=== PATIENT | male | born 1960 | race Caucasian/White ===

== ENCOUNTER 2016-05-22 10:15 | Day surgery (SDC) | payer BC ==
[2016-05-18 17:30] VITALS: BMI 30.5
[2016-05-22] MEDS ORDERED: PROPOFOL 20 ML ONE ×2 (10:50)
[2016-05-22 11:55] VITALS: TEMP 98.4
[2016-05-22 12:15] VITALS: BP 116/66; PULSE 74
--- NOTE | 2016-05-24 15:12 | PATH ---
Surgical Pathology Report Patient Name: MARIA DOLORES ANN [facility]. Rec. #: [id number] /Age/Gender: 1960 (Age: 55) / M Account: [id number] Location: [facility]-ENDOSCOPY Taken: 05/22/2016 Received: 05/22/2016 Reported: 05/24/2016 Physicians: Raza Trotter M.D. Specimen(s) Received LEFT COLON Clinical History Rule out colon cancer, history of polyps Polyp Final Diagnosis LEFT COLON, BIOPSY: TUBULAR ADENOMA. Electronically Signed Milena Santacruz M.D. Gross Description Received in formalin, labeled "left colon" is a mendoza, irregular portion of soft tissue measuring 0.2 cm. in greatest dimension. The specimen is submitted in toto in one cassette. 05/22/201605/22/2016
== END 2016-05-22 12:19 | disposition home or self-care (01) ==
LOC: FASU-ENDO 10:15
PROVIDERS: ATTEND Internal Medicine Gastroenterology
PROC: 0DBM8ZX Excision of Descending Colon, Via Natural or Artificial Opening Endoscopic, Diagnostic (ICD-10-PCS; principal; 2016-05-22 11:19)
DX: Z86.010 Personal history of colon polyps (principal); D12.4 Benign neoplasm of descending colon; Z83.71 Family history of colonic polyps; K57.30 Diverticulosis of large intestine without perforation or abscess without bleeding
CPT/HCPCS: 88305-TC

== ENCOUNTER 2017-03-10 09:45 | Emergency (ER) | payer BC ==
--- NOTE | 2017-03-10 09:58 | PDOC ---
History of Present Illness - General Chief Complaint: Respiratory Stated Complaint: COUGH & EAR CONGESTION Time Seen by Provider: 03/10/17 09:50 History Source: Patient Exam Limitations: No Limitations - History of Present Illness Initial Comments: 56 yo M with history of asthma presents with cough, congestion, fever, body aches for past 3 days. He returned from a trip to [place] yesterday. is at home with similar symptoms. He notes that the cough is productive in AM. He also notes that he has difficulty taking a deep breath as it causes a fit of coughing. Cough is worse at nighttime. Also associated with R ear pain and fullness. No discharge from ear. Past History - Past Medical History Allergies/Adverse Reactions: Allergies Allergy/AdvReac Type Severity Reaction Status Date / Time Penicillins Allergy Unknown Verified 03/10/17 09:54 Home Medications: Ambulatory Orders Cholecalciferol (Vitamin D3) [Vitamin D3] 2,000 unit PO DAILY 05/18/16 Fluticasone/Salmeterol [Advair 250-50 Diskus] 1 each IH DAILY 05/18/16 Alprazolam 1 mg PO ASDIR PRN #15 tablet 09/28/16 Aspirin [Aspirin Ec] 81 mg PO DAILY 09/28/16 Sertraline HCl [Zoloft] 50 mg PO DAILY #0 tablet 09/28/16 Acetaminophen [Pain Relief] 1,000 mg PO ONCE 03/10/17 Albuterol Sulfate Inhaler - [Ventolin HFA Inhaler -] 1 - 2 inh PO QID PRN #1 inhaler 03/10/17 Albuterol Sulfate Inhaler - [Ventolin Hfa Inhaler -] 1 - 2 inh PO QID PRN Guaifenesin AC [Robitussin AC -] 5 ml PO QID PRN #60 ml MDD 20 mL 03/10/17 Anemia: No Asthma: Yes Cancer: No Cardiac Disorders: No CVA: No COPD: No CHF: No Dementia: No Diabetes: No GI Disorders: No Disorders: No HTN: No Hypercholesterolemia: No (MILDLY ELEVATED-NO MEDS) Liver Disease: No Seizures: No Thyroid Disease: No - Surgical History Abdominal Surgery: No Appendectomy: No Cardiac Surgery: No Cholecystectomy: No Lung Surgery: No Neurologic Surgery: No Orthopedic Surgery: No - Suicide/Smoking/Psychosocial Hx Smoking Status: No Smoking History: Never smoked Number of Cigarettes Smoked Daily: 0 Hx Alcohol Use: Yes (THREE TIMES PER WEEK) Drug/Substance Use Hx: No Substance Use Type: Alcohol Hx Substance Use Treatment: No Review of Systems - Review of Systems Able to Perform ROS?: Yes Comments:: GENERAL/CONSTITUTIONAL: +Fever/chills. No weakness. HEAD, EYES, EARS, NOSE AND THROAT: No change in vision. +L ear pain, no discharge. +Sore throat. CARDIOVASCULAR: No shortness of breath. +Pain with cough. RESPIRATORY: +Cough. No wheezing or hemoptysis. GASTROINTESTINAL: No nausea, vomiting, diarrhea or constipation. GENITOURINARY: No dysuria, frequency, or change in urination. MUSCULOSKELETAL: No joint or muscle swelling or pain. No neck or back pain. SKIN: No rash NEUROLOGIC: No headache, vertigo, loss of consciousness, or change in strength/ sensation. ENDOCRINE: No increased thirst. No abnormal weight change. HEMATOLOGIC/LYMPHATIC: No anemia, easy bleeding, or history of blood clots. ALLERGIC/IMMUNOLOGIC: No hives or skin allergy. *Physical Exam - Physical Exam Comments: GENERAL: Awake, alert, and fully oriented, in no acute distress HEAD: No signs of trauma EYES: PERRLA, EOMI, sclera anicteric, conjunctiva clear. +TM effusions B/L. ENT: Auricles normal inspection, hearing grossly normal, nares patent, oropharynx clear without exudates. Moist mucosa. +Tonsillar hypertrophy B/L. NECK: Normal ROM. No JVD or masses. +Anterior cervical lymphadenopathy B/L. LUNGS: Breath sounds equal, clear to auscultation bilaterally. No wheezes, and no crackles. Intermittent dry cough. HEART: Tachycardic with regular rhythm, normal S1 and S2, no murmurs, rubs or gallops ABDOMEN: Soft, nontender, normoactive bowel sounds. No guarding, no rebound. No masses EXTREMITIES: Normal range of motion, no edema. No clubbing or cyanosis. No cords, erythema, or tenderness NEUROLOGICAL: Cranial nerves II through XII grossly intact. Normal speech, normal gait SKIN: Warm, Dry, normal turgor, no rashes or lesions noted. Medical Decision Making - Medical Decision Making 03/10/17 11:08 Pt likely with viral URI- flu vs other viral etiology. Will obtain CXR to r/o consolidation, flu swab. Will give ibuprofen for fever, duoneb for the bronchospasm. DC home when improved. 03/10/17 11:19 XR no acute findings. Flu swab negative. Symptoms have been for more than 48 hrs at this point, so even if it is a false negative, tamiflu will not help. Symptomatic treatment, outpatient f/u with PMD. *DC/Admit/Observation/Transfer Diagnosis at time of Disposition: Viral upper respiratory illness - Discharge Dispostion Disposition: HOME Condition at time of disposition: Improved Admit: No - Prescriptions Prescriptions: Albuterol Sulfate Inhaler - [Ventolin HFA Inhaler -] 1 - 2 inh PO QID PRN #1 inhaler PRN Reason: Short Of Breath/Wheezing Guaifenesin AC [Robitussin AC -] 5 ml PO QID PRN #60 ml MDD 20 mL PRN Reason: Cough - Referrals Referrals: Mando Bullock MD [Primary Care Provider] - - Patient Instructions Printed Discharge Instructions: DI for Viral Upper Respiratory Infection -- Adult - Post Discharge Activity
[2017-03-10 10:01] VITALS: BP 130/80; BMI 31.6
[2017-03-10] MEDS ORDERED: IBUPROFEN 600 MG TABLET (FP) PO ONE ×2 (10:02→10:04)
[2017-03-10] MEDS ORDERED: ALBUTEROL SO4 2.5/IPRATROPIUM 0.5 INH SOL 3 ML VIAL.NEB. NEB ONE ×2 (10:09→10:12)
[2017-03-10 10:57] VITALS: PULSE 104; TEMP 100.8
== END 2017-03-10 11:29 | disposition home or self-care (01) ==
LOC: FER 09:45
PROC: 3E0F7GC Introduction of Other Therapeutic Substance into Respiratory Tract, Via Natural or Artificial Opening (ICD-10-PCS; principal; 2017-03-10)
DX: J06.9 Acute upper respiratory infection, unspecified (principal); B97.89 Other viral agents as the cause of diseases classified elsewhere
CPT/HCPCS: 71010-TC; 87804; 99282-25

== ENCOUNTER 2019-03-08 10:01 | Emergency (ER) | payer BC ==
--- NOTE | 2019-03-08 10:15 | PDOC ---
History of Present Illness - General Chief Complaint: Injury Stated Complaint: RT SIDE RIB PAIN Time Seen by Provider: 03/08/19 10:03 - History of Present Illness Initial Comments: 03/08/19 10:23 58yo male presents ambulatory to the ER c/o R lateral rib pain s/p a fall yesterday. States he was walking the dog when he tripped over a curb and landed with his elbow going into his R ribs. States he was able to get up from the fall and walk home. States R rib pain since the fall and has taken oxycodone, advil, tylenol for the pain without relief. Pt states hx of asthma and he did feel sob last night and had pain all night. Pt with pinpoint ttp over the 8th R lateral rib. Pt denies abd pain. No blood in urine or stool. No cva ttp. Pt denies hitting his head or loc. Denies neck or back pain. Pt denies n/v/d. Pt denies all other complaints. No hip pain. States last tylenol dose was 4am today. Pmhx: asthma, HLD Pshx: R knee sx, pyloric stenosis sx as All: PCN Past History - Past Medical History Allergies/Adverse Reactions: Allergies Allergy/AdvReac Type Severity Reaction Status Date / Time Penicillins Allergy Unknown Verified 03/08/19 10:02 Home Medications: Ambulatory Orders Cholecalciferol (Vitamin D3) [Vitamin D3] 2,000 unit PO DAILY 05/18/16 Fluticasone/Salmeterol [Advair 250-50 Diskus] 1 each IH DAILY 05/18/16 Alprazolam 1 mg PO ASDIR PRN #15 tablet 09/28/16 Aspirin [Aspirin Ec] 81 mg PO DAILY 09/28/16 Sertraline HCl [Zoloft] 50 mg PO DAILY #0 tablet 09/28/16 Acetaminophen [Pain Relief] 1,000 mg PO ONCE 03/10/17 Albuterol Sulfate Inhaler - [Ventolin HFA Inhaler -] 1 - 2 inh PO QID PRN #1 inhaler 03/10/17 Acetaminophen W/ Codeine #3 [Tylenol # 3 -] 1 tab PO Q6H PRN #12 tablet MDD 4 tabs daily 03/08/19 Anemia: No Asthma: Yes Cancer: No Cardiac Disorders: No CVA: No COPD: No CHF: No Dementia: No Diabetes: No GI Disorders: No Disorders: No HTN: No Hypercholesterolemia: No (MILDLY ELEVATED-NO MEDS) Liver Disease: No Seizures: No Thyroid Disease: No - Surgical History Abdominal Surgery: No Appendectomy: No Cardiac Surgery: No Cholecystectomy: No Lung Surgery: No Neurologic Surgery: No Orthopedic Surgery: No - Psycho Social/Smoking Cessation Hx Smoking Status: No Smoking History: Never smoked Number of Cigarettes Smoked Daily: 0 Hx Alcohol Use: Yes (THREE TIMES PER WEEK) Drug/Substance Use Hx: No Substance Use Type: Alcohol Hx Substance Use Treatment: No Review of Systems - Review of Systems Able to Perform ROS?: Yes Is the patient limited Japanese proficient: No Constitutional: No: Chills, Fever HEENTM: No: Nose Congestion, Throat Swelling Respiratory: Yes: Shortness of Breath. No: Cough Cardiac (ROS): Yes: Chest Pain, Other (R rib pain) ABD/GI: No: Blood Streaked Bowels, Diarrhea, Nausea, Vomiting, Abdominal cramping : No: Burning, Dysuria, Hematuria Musculoskeletal: No: Back Pain, Neck Pain Integumentary: No: Bruising, Rash Neurological: No: Headache, Numbness, Paresthesia, Tingling, Tremors, Weakness, Ataxia, Dizziness All Other Systems: Reviewed and Negative *Physical Exam - Vital Signs 03/08/19 10:27 Selected Entries 03/08/19 10:02 Temperature 98.2 F Pulse Rate 76 Respiratory 20 Rate Blood Pressure 127/86 O2 Sat by Pulse 99 Oximetry (%) Weight 95.254 kg - Physical Exam General Appearance: Yes: Nourished, Appropriately Dressed. No: Apparent Distress HEENT: positive: EOMI, Pharynx Normal Neck: positive: Supple, Other (no stepoffs or deformities). negative: Tender lateral, Tender midline Respiratory/Chest: positive: Chest Tender (R lateral 8th rib ttp anterior axillary line and midaxillary line, no deformities, no ecchymosis, no hematoma) , Lungs Clear, Normal Breath Sounds. negative: Respiratory Distress Cardiovascular: positive: Regular Rhythm, Regular Rate, S1, S2. negative: Edema Gastrointestinal/Abdominal: positive: Normal Bowel Sounds, Soft. negative: Guarding, Rebound, Tenderness Musculoskeletal: positive: Normal Inspection, Other (no midline ttp, no stepoffs or deformities). negative: CVA Tenderness, Decreased Range of Motion, Vertebral Tenderness Extremity: positive: Normal Capillary Refill, Normal Inspection, Normal Range of Motion, Other (FROM of elbows b/l without ttp, FROM of knees, pelvis stable, ambulates with a steady gait) Integumentary: positive: Normal Color, Dry, Warm Neurologic: positive: book editor II-XII NML intact, Fully Oriented, Alert, Normal Mood/ Affect, Normal Response, Motor Strength 07/14 Medical Decision Making - Medical Decision Making 03/08/19 10:29 a/p: 58yo male with hx of hld/asthma s/p mechanical trip and fall yesterday while walking the dog with R lateral rib pain -concern for fracture rib vs bruised rib -lidoderm, pt declines oral meds -will send for rib xray series -will monitor and reassess -low suspicion for ptx, lungs cta b/l 03/08/19 11:11 cxr without rib fx wll give incentive spirometry no pna stable for dc to home 03/08/19 11:21 discussed pain control at home discussed follow up with PMD will give tylenol #3 for comfort at night, but discussed all side effects incentive spirometer to go home with Discharge - Discharge Information Problems reviewed: Yes Clinical Impression/Diagnosis: Rib contusion Condition: Stable Disposition: HOME - Admission No - Additional Discharge Information Prescriptions: Acetaminophen W/ Codeine #3 [Tylenol # 3 -] 1 tab PO Q6H PRN #12 tablet MDD 4 tabs daily PRN Reason: Pain - Follow up/Referral Referrals: Juan Carlos Dominguez MD [Staff Physician] - - Patient Discharge Instructions Patient Printed Discharge Instructions: How to Prevent Falls, DI for Prescription Opioid Use, DI for Rib Contusion, How to Use an Incentive Spirometer Additional Instructions: Please take all medications as prescribed. Please understand that tylenol with codeine has tylenol in it and please avoid more than 4000mg of tylenol daily. Please do not drive or operate heavy machinery while taking the tylenol #3. Please make an appointment to see your PMD on sunday. Please use the incentive spirometer as discussed - 10x every hour you are awake. Please avoid further falls. Please return to the ED with any further concerns or complaints. - Post Discharge Activity
[2019-03-08 10:17] VITALS: BP 127/86; PULSE 76; TEMP 98.2; BMI 32.3
[2019-03-08] MEDS ORDERED: LIDOCAINE 5% TOPICAL PATCH TP ONE (10:22)
[2019-03-08] MEDS ORDERED: LIDOCAINE 5% TOPICAL PATCH ONE (11:03)
[2019-03-08] MEDS ORDERED: LIDOCAINE PATCH REMOVAL MC SCH (22:00)
== END 2019-03-08 11:42 | disposition home or self-care (01) ==
LOC: FER 10:01
DX: S20.219A Contusion of unspecified front wall of thorax, initial encounter (principal); W18.39XA Other fall on same level, initial encounter; Z91.81 History of falling; Y93.89 Activity, other specified; Y92.89 Other specified places as the place of occurrence of the external cause; E78.00 Pure hypercholesterolemia, unspecified; J45.909 Unspecified asthma, uncomplicated
CPT/HCPCS: 71101-TC-RT-FY; 99282-25

== ENCOUNTER 2022-01-09 08:27 | Day surgery (SDC) | payer BC ==
[2022-01-05 15:53] VITALS: BMI 31.6
[2022-01-09 08:43] VITALS: TEMP 97.7
[2022-01-09 10:03] VITALS: RESP 18
[2022-01-09 10:05] VITALS: BP 110/66; PULSE 89
== END 2022-01-09 10:10 | disposition home or self-care (01) ==
LOC: FASU-ENDO 08:27
PROVIDERS: ATTEND Internal Medicine Gastroenterology
PROC: 0DJD8ZZ Inspection of Lower Intestinal Tract, Via Natural or Artificial Opening Endoscopic (ICD-10-PCS; principal; 2022-01-09 09:22)
DX: Z12.11 Encounter for screening for malignant neoplasm of colon (principal); Z86.010 Personal history of colon polyps; Z83.71 Family history of colonic polyps; K57.30 Diverticulosis of large intestine without perforation or abscess without bleeding; D17.5 Benign lipomatous neoplasm of intra-abdominal organs